=== PATIENT | female | born 1975 | race Caucasian/White ===

== ENCOUNTER 2019-12-06 12:17 | Inpatient (IN) | payer OTHER ==
[~2019-12-06] VITALS: Ht 162.6 cm; Wt 74.8 kg
[2019-12-06] MEDS ORDERED: 0.9% SODIUM CHLORIDE 10 ML SYRINGE IVP PRN ×2 (14:15→19:00)
[2019-12-06 15:18] LABS: BASOPHILS % (AUTO) 0.2 % (0.0-2.0); EOSINOPHILS % (AUTO) 0 % (1.0-6.0); HEMATOCRIT 37.4 % (36-46); HEMOGLOBIN 12.3 g/dL (12.0-16.0); LYMPHOCYTES % (AUTO) 23.5 % (22.0-44.0); MEAN CORPUSCULAR HEMOGLOBIN 29.4 pg (26.0-34.0); MEAN CORPUSCULAR HGB CONC 32.9 G/dL (31.0-37.0); MEAN CORPUSCULAR VOLUME 89 fL (80-100); MONOCYTES # (AUTO) 0.3 K/uL (0.1-1.0); MONOCYTES % (AUTO) 7.2 % (2.0-9.0); NEUTROPHILS % (AUTO) 69.1 % (40.0-70.0); PLATELET COUNT (AUTO) 103 K/uL (150-450); RED BLOOD CELL COUNT(AUTO) 4.19 MIL/uL (4.00-5.20); RED CELL DISTRIBUTION WIDTH 14.4 % (11.5-14.5)
[2019-12-06 15:27] LABS: ANION GAP 7 mmol/L (8-16); CALCIUM, TOTAL 8.2 mg/dL (8.8-10.5); CARBON DIOXIDE 28 mmol/L (22-29); CHLORIDE 100 mmol/L (98-107); GLOMERULAR FILTR. RATE CALC > 60 mL/min (>60); GLUCOSE,RANDOM 95 mg/dL (70-110); POTASSIUM 3.5 mmol/L (3.5-5.1); SODIUM SERUM 135 mmol/L (136-145); UREA NITROGEN, BLOOD 10 mg/dL (7-18)
[2019-12-06 15:36] LABS: LACTIC ACID 0.9 mmol/L (0.4-2.0)
[2019-12-06 15:48] LABS: B-TYPE NATRIURETIC PEPTIDE 23 pg/mL (0-100)
[2019-12-06 15:52] LABS: ALANINE AMINOTRANSFERASE 34 U/L (12-78); ALBUMIN 3.3 g/dL (3.4-5.0); ALKALINE PHOSPHATASE 61 U/L (46-116); ASPARTATE AMINOTRANSFERASE 39 U/L (15-37); BILIRUBIN,TOTAL 0.5 mg/dL (0.1-1.0); CREATINE KINASE, TOTAL ONLY 217 U/L (26-192); HCG,QUANTITATIVE < 1 mIU/mL (0-6); TOTAL PROTEIN, SERUM 7.8 g/dL (6.4-8.2)
[2019-12-06] MEDS ORDERED: ACETAMINOPHEN 325 MG TABLET PO ONE (16:30)
[2019-12-06 17:24] LABS: C-REACTIVE PROTEIN QUANT 4.33 mg/dL (0.00-0.30)
[2019-12-06 18:07] LABS: FERRITIN 174 ng/mL (8-252)
[2019-12-06 18:54] LABS: APPEARANCE,URINE CLOUDY (CLEAR); GLUCOSE, URINE (UA) NEGATIVE (NEGATIVE); KETONES,URINE 15 mg/dL (NEGATIVE); LEUKOCYTE ESTERASE ,URINE SMALL (NEGATIVE); NITRATE,URINE NEGATIVE (NEGATIVE); OCCULT BLOOD,URINE LARGE (NEGATIVE); PH,URINE 6.5 (5.0-8.0); PROTEIN,URINE POS 1+ (NEGATIVE)
[2019-12-06 18:55] LABS: BILIRUBIN,URINE PRELIM. POSITIVE (NEGATIVE)
[2019-12-06] MEDS ORDERED: ACETAMINOPHEN 325 MG TABLET PO PRN (19:00)
[2019-12-06] MEDS ORDERED: ONDANSETRON HCL 4 MG/2 ML VIAL IVP PRN ×2 (19:00→20:45)
[2019-12-06] MEDS ORDERED: CefTRIAXone 1 GM/DEXTROSE 50 ML IV ONE (19:00)
[2019-12-06] MEDS ORDERED: AZITHROMYCIN 500 MG/NS 250 ML IV ONE (19:00)
[2019-12-06 19:04] LABS: BACTERIA,URINE Moderate /HPF (None Seen); SQUAMOUS EPITHELIAL CELL,UR Few /LPF (None Seen)
[2019-12-06] MEDS ORDERED: MORPHINE SULFATE 2 MG/ML SYRINGE IVP PRN (20:45)
[2019-12-06] MEDS ORDERED: MAGNESIUM HYDROXIDE SUSPENSION 30 ML UDCUP PO PRN (20:45)
[2019-12-06] MEDS ORDERED: BISACODYL 10 MG RECTAL RECTAL SUPPOSITORY PR PRN (20:45)
[2019-12-06] MEDS ORDERED: ZOLPIDEM TARTRATE 5 MG TABLET PO PRN (20:45)
[2019-12-06] MEDS ORDERED: HYDROCODONE/ACETAMINOPHEN 5-325 MG TABLET PO PRN (20:45)
[2019-12-06] MEDS: DOCUSATE SODIUM 100 MG CAPSULE PO SCH (21:00)
[2019-12-06] MEDS: LEVOFLOXACIN 750 MG/D5% WATER 150 ML IV SCH (21:00)
[2019-12-06 23:58] VITALS: BP 141/56
[2019-12-07] MEDS: ACETAMINOPHEN 325 MG TABLET PO PRN ×2 (00:06→15:24)
[2019-12-07] MEDS ORDERED: SODIUM CHLORIDE 0.9% 500 ML IV ONE (00:33)
[2019-12-07] MEDS: LEVOFLOXACIN 750 MG/D5% WATER 150 ML IV SCH (00:35)
[2019-12-07] MEDS: IPRATROPIUM BROMIDE 0.5 MG/2.5 ML NEB SOLUTION NEB PRN ×3 (04:02→20:38)
[2019-12-07] MEDS: ALBUTEROL SULFATE 2.5 MG/0.5 ML NEB SOLUTION NEB PRN ×3 (04:02→20:37)
[2019-12-07 04:54] VITALS: BP 129/65
[2019-12-07 07:29] LABS: BASOPHILS % (AUTO) 0.2 % (0.0-2.0); EOSINOPHILS % (AUTO) 0.1 % (1.0-6.0); HEMATOCRIT 35.8 % (36-46); LYMPHOCYTES # (AUTO) 0.9 K/uL (1.0-4.8); LYMPHOCYTES % (AUTO) 26.8 % (22.0-44.0); MEAN CORPUSCULAR HEMOGLOBIN 29.9 pg (26.0-34.0); MEAN CORPUSCULAR HGB CONC 33.6 G/dL (31.0-37.0); MEAN CORPUSCULAR VOLUME 89 fL (80-100); MONOCYTES # (AUTO) 0.2 K/uL (0.1-1.0); MONOCYTES % (AUTO) 6.7 % (2.0-9.0); NEUTROPHILS # (AUTO) 2.3 K/uL (1.8-7.7); NEUTROPHILS % (AUTO) 66.2 % (40.0-70.0); PLATELET COUNT (AUTO) 102 K/uL (150-450); RED BLOOD CELL COUNT(AUTO) 4.02 MIL/uL (4.00-5.20); RED CELL DISTRIBUTION WIDTH 14.2 % (11.5-14.5)
[2019-12-07 07:50] VITALS: BP 137/77
[2019-12-07 07:54] LABS: ALANINE AMINOTRANSFERASE 30 U/L (12-78); ALBUMIN 2.9 g/dL (3.4-5.0); ALKALINE PHOSPHATASE 56 U/L (46-116); ANION GAP 8 mmol/L (8-16); ASPARTATE AMINOTRANSFERASE 34 U/L (15-37); BILIRUBIN,TOTAL 0.4 mg/dL (0.1-1.0); CARBON DIOXIDE 26 mmol/L (22-29); CHLORIDE 104 mmol/L (98-107); CREATININE 0.56 mg/dL (0.60-1.30); GLOMERULAR FILTR. RATE CALC > 60 mL/min (>60); GLUCOSE,RANDOM 96 mg/dL (70-110); POTASSIUM 3.4 mmol/L (3.5-5.1); SODIUM SERUM 138 mmol/L (136-145); TOTAL PROTEIN, SERUM 7.2 g/dL (6.4-8.2); UREA NITROGEN, BLOOD 7 mg/dL (7-18)
[2019-12-07] MEDS: HEPARIN SODIUM,PORCINE 5,000 UNITS/ML VIAL SQ SCH ×4 (08:00→23:59)
[2019-12-07] MEDS: DOCUSATE SODIUM 100 MG CAPSULE PO SCH ×2 (09:00→20:34)
[2019-12-07] MEDS: PANTOPRAZOLE SODIUM 40 MG DR TABLET PO SCH (09:27)
[2019-12-07] MEDS ORDERED: POTASSIUM CHLORIDE 20 MEQ ER TABLET PO PRN (11:00)
[2019-12-07] MEDS ORDERED: POTASSIUM CHL 10 MEQ/WATER 50 ML IV PRN (11:00)
[2019-12-07 11:01] VITALS: BP 128/78
[2019-12-07 12:07] LABS: D-DIMER 0.76 mg/L FEU (0.00-0.50)
[2019-12-07 12:28] LABS: C-REACTIVE PROTEIN QUANT 5.71 mg/dL (0.00-0.30)
[2019-12-07 14:57] VITALS: BP 126/64
[2019-12-07 20:09] VITALS: BP 132/67
[2019-12-07] MEDS: DOXYCYCLINE HYCLATE 100 MG TABLET PO SCH (20:35)
[2019-12-07 23:25] VITALS: BP 145/86
[2019-12-08] MEDS: LEVOFLOXACIN 750 MG/D5% WATER 150 ML IV SCH (00:43)
[2019-12-08 04:33] VITALS: BP 128/55
[2019-12-08] MEDS: ALBUTEROL SULFATE 2.5 MG/0.5 ML NEB SOLUTION NEB PRN ×3 (04:55→23:44)
[2019-12-08] MEDS: IPRATROPIUM BROMIDE 0.5 MG/2.5 ML NEB SOLUTION NEB PRN ×2 (04:55→23:44)
[2019-12-08 07:35] VITALS: BP 130/82
[2019-12-08] MEDS: DOXYCYCLINE HYCLATE 100 MG TABLET PO SCH ×2 (07:44→21:33)
[2019-12-08] MEDS: DOCUSATE SODIUM 100 MG CAPSULE PO SCH ×2 (07:44→21:33)
[2019-12-08] MEDS: HEPARIN SODIUM,PORCINE 5,000 UNITS/ML VIAL SQ SCH ×3 (07:44→23:29)
[2019-12-08] MEDS: PANTOPRAZOLE SODIUM 40 MG DR TABLET PO SCH (07:44)
[2019-12-08 07:46] LABS: BASOPHILS % (AUTO) 0.4 % (0.0-2.0); EOSINOPHILS % (AUTO) 0.2 % (1.0-6.0); HEMATOCRIT 35.3 % (36-46); HEMOGLOBIN 11.8 g/dL (12.0-16.0); LYMPHOCYTES # (AUTO) 1.1 K/uL (1.0-4.8); LYMPHOCYTES % (AUTO) 25.3 % (22.0-44.0); MEAN CORPUSCULAR HGB CONC 33.5 G/dL (31.0-37.0); MEAN CORPUSCULAR VOLUME 89 fL (80-100); MONOCYTES # (AUTO) 0.3 K/uL (0.1-1.0); NEUTROPHILS # (AUTO) 2.9 K/uL (1.8-7.7); NEUTROPHILS % (AUTO) 66.1 % (40.0-70.0); PLATELET COUNT (AUTO) 124 K/uL (150-450); RED BLOOD CELL COUNT(AUTO) 3.95 MIL/uL (4.00-5.20); RED CELL DISTRIBUTION WIDTH 14.3 % (11.5-14.5)
[2019-12-08 07:56] LABS: ANION GAP 11 mmol/L (8-16); CALCIUM, TOTAL 8.4 mg/dL (8.8-10.5); CARBON DIOXIDE 25 mmol/L (22-29); CHLORIDE 102 mmol/L (98-107); CREATININE 0.55 mg/dL (0.60-1.30); GLOMERULAR FILTR. RATE CALC > 60 mL/min (>60); GLUCOSE,RANDOM 88 mg/dL (70-110); POTASSIUM 3.7 mmol/L (3.5-5.1); SODIUM SERUM 138 mmol/L (136-145); UREA NITROGEN, BLOOD 9 mg/dL (7-18)
[2019-12-08 11:41] VITALS: BP 148/63
[2019-12-08] MEDS ORDERED: MAGNESIUM SULFATE 4 GM/WATER 100 ML IV PRN (14:00)
[2019-12-08] MEDS ORDERED: MAGNESIUM OXIDE 400 MG TABLET PO PRN (14:00)
[2019-12-08] MEDS ORDERED: MAGNESIUM SULFATE 2 GM/WATER 50 ML IV PRN (14:00)
[2019-12-08 14:23] LABS: MAGNESIUM 1.6 mg/dL (1.80-2.40)
[2019-12-08 15:11] LABS: ALBUMIN 2.9 g/dL (3.4-5.0)
[2019-12-08 16:02] VITALS: BP 152/74
[2019-12-08 20:02] VITALS: BP 122/69
[2019-12-08 23:33] VITALS: BP 129/78
[2019-12-09] MEDS: LEVOFLOXACIN 750 MG/D5% WATER 150 ML IV SCH (00:55)
[2019-12-09 04:03] VITALS: BP 140/77
[2019-12-09 07:22] LABS: BASOPHILS % (AUTO) 0.4 % (0.0-2.0); EOSINOPHILS % (AUTO) 1.8 % (1.0-6.0); LYMPHOCYTES # (AUTO) 1.2 K/uL (1.0-4.8); LYMPHOCYTES % (AUTO) 43.8 % (22.0-44.0); MEAN CORPUSCULAR HEMOGLOBIN 30.2 pg (26.0-34.0); MEAN CORPUSCULAR HGB CONC 34.3 G/dL (31.0-37.0); MEAN CORPUSCULAR VOLUME 88 fL (80-100); MONOCYTES # (AUTO) 0.3 K/uL (0.1-1.0); MONOCYTES % (AUTO) 10.4 % (2.0-9.0); NEUTROPHILS # (AUTO) 1.2 K/uL (1.8-7.7); NEUTROPHILS % (AUTO) 43.6 % (40.0-70.0); PLATELET COUNT (AUTO) 159 K/uL (150-450); RED BLOOD CELL COUNT(AUTO) 3.96 MIL/uL (4.00-5.20); RED CELL DISTRIBUTION WIDTH 14.1 % (11.5-14.5)
[2019-12-09 07:45] LABS: ANION GAP 10 mmol/L (8-16); CALCIUM, TOTAL 8.1 mg/dL (8.8-10.5); CARBON DIOXIDE 25 mmol/L (22-29); CHLORIDE 106 mmol/L (98-107); CREATININE 0.43 mg/dL (0.60-1.30); GLOMERULAR FILTR. RATE CALC > 60 mL/min (>60); GLUCOSE,RANDOM 85 mg/dL (70-110); POTASSIUM 3.7 mmol/L (3.5-5.1); SODIUM SERUM 141 mmol/L (136-145); UREA NITROGEN, BLOOD 10 mg/dL (7-18)
[2019-12-09 08:00] VITALS: BP 137/86
[2019-12-09] MEDS: DOXYCYCLINE HYCLATE 100 MG TABLET PO SCH (08:27)
[2019-12-09] MEDS: PANTOPRAZOLE SODIUM 40 MG DR TABLET PO SCH (08:27)
[2019-12-09] MEDS: HEPARIN SODIUM,PORCINE 5,000 UNITS/ML VIAL SQ SCH (08:27)
[2019-12-09] MEDS: DOCUSATE SODIUM 100 MG CAPSULE PO SCH (08:27)
[2019-12-09] MEDS ORDERED: DOXY-354 PO (11:37)
[2019-12-09] MEDS ORDERED: LEVO750T68 PO (11:37)
[2019-12-10 11:47] LABS: LEGIONELLA PNEUMO AG URINE Negative (Negative); ORGANISM ID Not indicated.; S PNEUMO SOURCE Urine; STREP PNEUMONIAE AG URINE Negative (Negative); STREP.PNEUMO BODY FLUID CULT. Not indicated.
== END 2019-12-09 14:30 | disposition home or self-care (01) | DRG 720 ==
LOC: EMS 12:19 → 5S 21:30 → UNDOADMIN 21:30
PROVIDERS: ADMIT Internal Medicine; ATTEND Internal Medicine
DX: A41.9 Sepsis, unspecified organism (principal); J18.9 Pneumonia, unspecified organism; E87.1 Hypo-osmolality and hyponatremia; D72.819 Decreased white blood cell count, unspecified; E87.6 Hypokalemia
CPT/HCPCS: 71250; 82728; 83605; 83615; 83735; 84132; 84145; 85379; 85384; 86140; 87040; 87086; 87449; 87899; 93005; 94640; G0378; J0456; J0696; J1644; J1956; J3475; J7040

== ENCOUNTER 2022-10-05 08:16 | Emergency (ER) | payer OTHER ==
[~2022-10-05] VITALS: Ht 160 cm; Wt 72.7 kg
[~2022-10-05 08:16] MED LIST: DOXY-354 PO; LEVO750T68 PO
[2022-10-05] MEDS ORDERED: ACET-2247 PO (08:19)
[2022-10-05 08:44] VITALS: BP 139/69
[2022-10-05 09:27] LABS: COVID AG,FIA SOURCE NASAL SWAB
[2022-10-05] MEDS ORDERED: ACETAMINOPHEN 500 MG TABLET PO ONE (09:30)
[2022-10-05 09:49] LABS: INFLUENZA TYPE A NEGATIVE FOR TYPE A (NEGATIVE); INFLUENZA TYPE B NEGATIVE FOR TYPE B (NEGATIVE)
[2022-10-05] MEDS ORDERED: LIDOCAINE/PF 1% 2 ML VIAL IM ONE (10:15)
[2022-10-05] MEDS ORDERED: CefTRIAXone SODIUM 1 GM/VIAL IM ONE (10:15)
[2022-10-05 10:48] LABS: BASOPHILS % (AUTO) 0.4 % (0.0-2.0); EOSINOPHILS % (AUTO) 0.1 % (1.0-6.0); HEMATOCRIT 36.9 % (36-46); HEMOGLOBIN 12.3 g/dL (12.0-16.0); LYMPHOCYTES # (AUTO) 0.9 K/uL (1.0-4.8); LYMPHOCYTES % (AUTO) 7.8 % (22.0-44.0); MEAN CORPUSCULAR HEMOGLOBIN 30.4 pg (26.0-34.0); MEAN CORPUSCULAR HGB CONC 33.2 G/dL (31.0-37.0); MEAN CORPUSCULAR VOLUME 91 fL (80-100); MONOCYTES # (AUTO) 0.5 K/uL (0.1-1.0); MONOCYTES % (AUTO) 4.6 % (2.0-9.0); NEUTROPHILS # (AUTO) 9.8 K/uL (1.8-7.7); PLATELET COUNT (AUTO) 160 K/uL (150-450); RED BLOOD CELL COUNT(AUTO) 4.04 MIL/uL (4.00-5.20); RED CELL DISTRIBUTION WIDTH 14.7 % (11.5-14.5)
[2022-10-05 10:50] LABS: NEUTROPHILS % (AUTO) 87.1 % (40.0-70.0)
[2022-10-05] MEDS ORDERED: SULF-261 PO (11:20)
== END 2022-10-05 11:49 | disposition home or self-care (01) ==
LOC: EMS 08:16
DX: N39.0 Urinary tract infection, site not specified (principal); R50.9 Fever, unspecified; I10 Essential (primary) hypertension; Z20.822 Contact with and (suspected) exposure to COVID-19
CPT/HCPCS: 99283; 87426; 85025; 87804; 36415; 87086; 87186; 96372; J0696; J3490

== ENCOUNTER 2023-02-17 14:43 | Emergency (ER) | payer OTHER ==
[~2023-02-17] VITALS: Ht 165.1 cm; Wt 72.7 kg
[~2023-02-17 14:43] MED LIST changes: +ACET-2247 PO; -DOXY-354 PO; -LEVO750T68 PO; +SULF-261 PO
[2023-02-17 14:49] VITALS: TEMP 98
[2023-02-17] MEDS ORDERED: ACETAMINOPHEN/CODEINE 300-30 MG TABLET PO ONE (15:30)
[2023-02-17] MEDS ORDERED: IBUPROFEN 600 MG TABLET PO ONE (15:30)
[2023-02-17] MEDS ORDERED: ACET-2080 PO (17:41)
[2023-02-17] MEDS ORDERED: IBUP-1554 PO (17:41)
[2023-02-17 17:50] VITALS: BP 148/80; PULSE 66; RESP 16
== END 2023-02-17 17:56 | disposition home or self-care (01) ==
LOC: EMS 14:43
DX: S60.222A Contusion of left hand, initial encounter (principal); I10 Essential (primary) hypertension; X58.XXXA Exposure to other specified factors, initial encounter; Y93.89 Activity, other specified; Y92.89 Other specified places as the place of occurrence of the external cause; Y99.0 Civilian activity done for income or pay
CPT/HCPCS: 99284; 73110-TC; 73130-TC; Z7502; Z7610

== ENCOUNTER 2025-07-19 02:24 | Emergency (ER) | payer MEDICAID, OTHER ==
[~2025-07-19] VITALS: Ht 162.6 cm; Wt 77.3 kg
[~2025-07-19 02:24] MED LIST changes: +ACET-2080 PO; -ACET-2247 PO; +IBUP-1554 PO; -SULF-261 PO
[2025-07-19 02:25] VITALS: TEMP 97.7
[2025-07-19 03:03] VITALS: BP 161/83; PULSE 83; RESP 14; O2SAT 98
[2025-07-19] MEDS: ACETAMINOPHEN 500 MG TABLET PO ONE (04:43)
[2025-07-19] MEDS: PERTUSS(ACELL),DIPH,TET/PF 0.5 ML SYRINGE [ADULT] IM. ONE (04:44)
== END 2025-07-19 04:59 | disposition home or self-care (01) ==
LOC: EMS 02:24
DX: S01.20XA Unspecified open wound of nose, initial encounter (principal); S09.90XA Unspecified injury of head, initial encounter; I10 Essential (primary) hypertension; Z79.899 Other long term (current) drug therapy; W19.XXXA Unspecified fall, initial encounter; Y93.89 Activity, other specified; Y92.89 Other specified places as the place of occurrence of the external cause; Y99.8 Other external cause status
CPT/HCPCS: 90471; 90715; 99283